=== PATIENT | male | born 1950 | race Caucasian/White ===

== ENCOUNTER → 2016-08-20 | Outpatient (CLI) | payer MEDICARE ==
[2016-08-20 12:46] LABS: CH 26.6; CHCM 31.6; HDW 3.08; HGB 12.6 gm/dL (13.0-17.5); Hypochromasia Slight; MCHC 30.7 g/dL (31.0-37.0); MCV 84.8 fL (80.0-100.0); Mean Platelet Volume 6.8; RBC 4.84 m/uL (4.30-5.90); RDW 15.5 % (11.5-15.5)
[2016-08-20 12:54] LABS: ALT 37 U/L (21-72); AST 29 U/L (17-59); Alkaline Phosphatase 56 U/L (38-126); Anion Gap 12 mmol/L; Blood Urea Nitrogen 14 mg/dL (9-20); Calcium 8.3 mg/dL (8.4-10.2); Carbon Dioxide 26 mmol/L (22-30); Chloride 100 mmol/L (98-107); Glucose 94 mg/dL (74-99); Non-African American GFR(MDRD) >60 (>60 ml/min/1.73 sqM); Potassium 3.4 mmol/L (3.5-5.1); Sodium 138 mmol/L (137-145); Total Bilirubin 0.4 mg/dL (0.2-1.3); Total Protein 6.1 g/dL (6.3-8.2)
[2016-08-20 13:01] LABS: Prealbumin 15 mg/dL (18-36)
--- NOTE | 2016-08-20 18:49 | US ---
EXAMINATION TYPE: US venous doppler duplex LE LT DATE OF EXAM: 08/20/2016 9:02 AM COMPARISON: NONE CLINICAL HISTORY: leg swelling post surgery. SIDE PERFORMED: Left VESSELS IMAGED: External Iliac Vein (EIV) Common Femoral Vein Deep Femoral Vein Greater Saphenous Vein * Femoral Vein Popliteal Vein Proximal Calf Veins (* superficial vessels) Left Leg: Negative for DVT TECHNOLOGIST IMPRESSION: Left leg negative for DVT. IMPRESSION: 1. Negative left lower extremity for deep venous thrombosis.
== END | disposition home or self-care (01) ==
LOC: RADUSMAIN 08:23
PROVIDERS: ATTEND Surgery Plastic and Reconstructive Surgery
DX: R22.42 Localized swelling, mass and lump, left lower limb (principal)
CPT/HCPCS: 36415; 80053; 83970; 84134; 85027

== ENCOUNTER → 2016-08-20 | Outpatient (CLI) | payer MEDICARE, OTHER ==
[~2016-08-20] MED LIST: SODIUM CHLORIDE 0.9% 250 ML in EMPTY BAG 1 BAG IV PRN
[2016-08-20] MEDS: SODIUM CHLORIDE 0.9% 500 ML in EMPTY BAG 1 BAG IV PRN ×4 (13:35→15:17)
[2016-08-20 13:52] VITALS: BP 137/92; PULSE 68; RESP 16; TEMP 97.7
--- NOTE | 2016-08-20 19:30 | P.PN ---
Progress Note - Text Patient's family, notified of results of low potassium. His diuretic has been discontinued for hypokalemia. Potassium rich foods were described including tomato base and potato soup. I have recommended follow-up in 48 hours.
== END | disposition home or self-care (01) ==
LOC: PROCWHC3 12:33
PROVIDERS: ATTEND Surgery Plastic and Reconstructive Surgery
DX: E86.0 Dehydration (principal); E87.6 Hypokalemia
CPT/HCPCS: 36415; 80053; 83970; 84134; 85027; 96360; 96361

== ENCOUNTER → 2016-08-29 | Outpatient (CLI) | payer MEDICARE, OTHER ==
[2016-08-29 09:13] VITALS: BP 144/83; PULSE 62; RESP 16; TEMP 98.2; BMI 40.6
[2016-08-29 11:45] LABS: CH 26.2; CHCM 30.9; HCT 40.6 % (39.0-53.0); HDW 3.01; HGB 12.7 gm/dL (13.0-17.5); Hypochromasia Moderate; MCH 26.5 pg (25.0-35.0); MCHC 31.2 g/dL (31.0-37.0); Mean Platelet Volume 6.8; RBC 4.77 m/uL (4.30-5.90); RDW 15.6 % (11.5-15.5); WBC 6.1 k/uL (3.8-10.6)
[2016-08-29 11:53] LABS: INR 1.2 (<1.1); Partial Thromboplastin Time 23.7 sec (22.0-30.0); Prothrombin Time 11.8 sec (9.0-12.0)
[2016-08-29 12:05] LABS: ALT 46 U/L (21-72); AST 35 U/L (17-59); Alkaline Phosphatase 71 U/L (38-126); Anion Gap 11 mmol/L; Blood Urea Nitrogen 19 mg/dL (9-20); Calcium 9.2 mg/dL (8.4-10.2); Carbon Dioxide 25 mmol/L (22-30); Chloride 105 mmol/L (98-107); Cholesterol 138 mg/dL (<200); Glucose 97 mg/dL (74-99); HDL Cholesterol 27 mg/dL (40-60); Iron 43 ug/dL (49-181); Magnesium 2.1 mg/dL (1.6-2.3); Non-African American GFR(MDRD) >60 (>60 ml/min/1.73 sqM); Potassium 4.2 mmol/L (3.5-5.1); Sodium 141 mmol/L (137-145); Total Bilirubin 0.4 mg/dL (0.2-1.3); Total Protein 6.8 g/dL (6.3-8.2); Triglycerides 157 mg/dL (<150)
[2016-08-29 12:16] LABS: % Iron Saturation 18.1 % (20-50); Prealbumin 21 mg/dL (18-36); Total Iron Binding Capacity 237 ug/dL (261-462)
[2016-08-29 13:13] LABS: Vitamin B12 449 pg/mL
[2016-09-03 15:26] LABS: Selenium 157 mcg/L (63-160)
--- NOTE | 2016-09-15 17:23 | P.PN ---
Progress Note - Text DATE OF SERVICE: 08/29/2016. CHIEF COMPLAINT: Follow-up gastric bypass. HISTORY OF PRESENT ILLNESS: Frederic Lane is a 65-year-old gentleman who is status post Alex-en-Y gastric bypass on 08/05/2016. He is now 3 weeks out. He says "I feel great." His highest weight for his 6 feet 1 inch frame is approximately 347 pounds. Today he comes in weighing 307 pounds. He has already lost 40 pounds in approximately one month. In fact, in the last 3 weeks he has lost 38 pounds. Percent excess weight loss is now up to 25%. Body mass index is now reduced from 45.9 down to 40.6. He is able to tolerate all foods. He denies any dysphagia. No reports of nausea and vomiting. He is off all pain medications. He has completed his course of antibiotics. He has also discontinued his metformin as his blood sugars are normal. His blood pressure medication has also been adjusted as to avoid renal insufficiency. He is about to follow up with the urologist. Now he presents for further evaluation and management. PHYSICAL EXAM: VITAL SIGNS: 98.2, 62, 16, 144/83 6, 1, 307 pounds. Body mass index 40.6. GENERAL: Well-developed male in no acute distress. ABDOMEN: Soft, nontender, nondistended. All incisions granulated. No signs of infection or incisional hernias. He has a known umbilical hernia. MUSCULOSKELETAL: No clubbing, cyanosis, or edema. LABS: Hemoglobin improved from 11 to 12.7. Hyperchromasia is moderate. INR is 1.2 normal. Iron is low at 43. Total iron-binding capacity low at 237. Percent iron saturation was low at 18.1. Triglycerides were elevated at 157. Liver enzymes are within normal limits. HDL is low at 27. The rest of vitamins are within normal limits. ASSESSMENT: 1. Status post Alex-en-Y gastric bypass. 2. Hypertension. 3. Iron deficiency anemia. 4. Hypertriglyceridemia. 5. Morbid obesity. 6. Body mass index reduced from 45.9 down to 40.6. 7. Dietary surveillance and counseling. PLAN: 1. Clinically he is doing extremely well given his odessa course 3 weeks following his procedure. 2. I have gone over his medical reconciliation whereby he will continue with his blood pressure medication with the exception of his ROSEMARY inhibitor. 3. He has iron deficiency anemia for which iron infusions may be of benefit. 4. Recommend continued protein intake of at least 90 grams daily given his height and weight. 5. Recommend follow-up in 2 weeks at [place] office. 6. I have asked him to follow up sooner or contact the office should he have any further concerns.
== END | disposition home or self-care (01) ==
LOC: BARWHC3 08:56
PROVIDERS: ATTEND Surgery Plastic and Reconstructive Surgery
DX: Z48.815 Encounter for surgical aftercare following surgery on the digestive system (principal); Z98.84 Bariatric surgery status; I10 Essential (primary) hypertension; D50.9 Iron deficiency anemia, unspecified; E78.1 Pure hyperglyceridemia; E66.01 Morbid (severe) obesity due to excess calories; Z68.41 Body mass index [BMI] 40.0-44.9, adult; E21.1 Secondary hyperparathyroidism, not elsewhere classified; E89.1 Postprocedural hypoinsulinemia; D50.8 Other iron deficiency anemias; E44.0 Moderate protein-calorie malnutrition; E55.9 Vitamin D deficiency, unspecified; K74.1 Hepatic sclerosis; N19 Unspecified kidney failure; K50.90 Crohn's disease, unspecified, without complications
CPT/HCPCS: 84255; 84134; 84425; 80061; 80053; 82607; 82728; 83036; 82525; 82746; 83540; 83550; 83735; 84100; 84443; 84590; 84630; 85027; 85610; 85730; 82306; 83970; G0463; 99211

== ENCOUNTER → 2016-09-25 | Outpatient (CLI) | payer MEDICARE, OTHER ==
[2016-09-25 16:21] VITALS: BP 158/93; PULSE 60; RESP 18; TEMP 98.8; BMI 38.3
--- NOTE | 2016-09-29 18:08 | P.PN ---
Progress Note - Text DATE OF SERVICE: 09/25/2016 CHIEF COMPLAINT: Follow up gastric bypass. HISTORY OF PRESENT ILLNESS: Frederic Lane is a 65-year-old gentleman who is status post gastric bypass on 08/05/2016. He is approximately 6 to 9 weeks out from his procedure. His highest weight for his 6-foot 1-inch frame is 347 pounds. His ideal body weight is 188 pounds. Today he comes in weighing 290 pounds. In less than 2 months, he has already lost 57 pounds. Percent excess weight loss is 36%. Body mass index is reduced from 45.9 down to 38.4. Incidentally, he is not taking medications and he is medically noncompliant with his treatment. Despite having numerous conversations in followup, he still does not take adequate protein intake or protein shakes. He has already started to eat peanuts, which is not part of his dietary regimen. "I'm sick and tired of drinking protein shakes." His family has tried to find additional alternatives for protein shakes; however, he is already eagerly eating deli meats. Again, he is already eating peanuts. His sleep apnea is now resolved. No reports of hypertension. No reports of diarrhea, constipation or dumping syndrome as well. PHYSICAL EXAM: VITAL SIGNS: 98.8, 60, 18, 150/93, 6 feet 1 inch, 298 pounds, body mass index 38.4. GENERAL: Well-developed male in no acute distress. HEENT: No scleral icterus. Extraocular movements grossly intact. Moist buccal mucosa. NECK: Supple without lymphadenopathy. CHEST: Nonlabored respirations with equal bilateral excursions. CARDIOVASCULAR: Regular rate, regular rhythm. ABDOMEN: Protuberant, soft, nontender, nondistended. Wounds completely granulated. MUSCULOSKELETAL: No clubbing, cyanosis, or edema. NEURO: No focal or lateralizing signs. PSYCH: Appropriate affect. Alert and oriented to person, place, and time. LABS: Previous labs reviewed with hemoglobin low at 12.7. Moderate hyperchromasia and iron deficiency anemia was identified. Iron was low at 43. Total iron-binding capacity was low at 237. Percent iron saturation was low at 18.1. Triglycerides were elevated at 157. Cholesterol was low at 138. HDL was low at 27. Vitamin D was low at 11. Trace elements were within normal limits. ASSESSMENT: 1. Status post Alex-en-Y gastric bypass. 2. Morbid obesity due to excess calories. 3. Body mass index reduced from 45.9 down to 38.4. 4. Medical noncompliance to dietary regimen following bariatric procedure. 5. History of hypertensive heart disease, stable. 6. Obstructive sleep apnea, resolved. 7. Diabetes type 2, not insulin-dependent, resolved. 8. Vitamin D deficiency. 9. Iron-deficiency anemia. PLAN: 1. He was educated about the need for protein intake, which will also help with his weight loss. 2. He is saddened that his weight loss has slowed down; however, I have encouraged him that he is doing exceptionally well; however, he needs to adhere to the dietary guidelines. 3. He denies any dysphagia with foods at this time. 4. Vitamin D supplementation advised. 5. Iron supplement advised. 6. Start of multivitamins although advised, although he is forgetting to take his multivitamins. 7. Given his high risk nature, recommend followup at the [place] office in approximately 3 weeks.
== END | disposition home or self-care (01) ==
LOC: BARWHC3 14:14
PROVIDERS: ATTEND Surgery Plastic and Reconstructive Surgery
DX: Z48.815 Encounter for surgical aftercare following surgery on the digestive system (principal); Z71.3 Dietary counseling and surveillance; E66.01 Morbid (severe) obesity due to excess calories; Z68.38 Body mass index [BMI] 38.0-38.9, adult; Z98.84 Bariatric surgery status; Z91.11 Patient's noncompliance with dietary regimen; I11.9 Hypertensive heart disease without heart failure; E55.9 Vitamin D deficiency, unspecified; D50.9 Iron deficiency anemia, unspecified
CPT/HCPCS: 97803; G0463; 99211

== ENCOUNTER → 2017-09-15 | Outpatient (CLI) | payer MEDICARE ==
[2017-09-15 16:26] LABS: HCT 42.3 % (39.0-53.0); HGB 13.7 gm/dL (13.0-17.5); MCH 29.3 pg (25.0-35.0); MCHC 32.4 g/dL (31.0-37.0); MCV 90.3 fL (80.0-100.0); Mean Platelet Volume 6.7; Platelet Count 202 k/uL (150-450); RBC 4.68 m/uL (4.30-5.90); RDW 14.8 % (11.5-15.5); WBC 7.1 k/uL (3.8-10.6)
[2017-09-15 16:31] LABS: INR 1.1 (<1.2); Prothrombin Time 10.6 sec (9.0-12.0)
[2017-09-15 16:54] LABS: ALT 38 U/L (21-72); AST 26 U/L (17-59); Albumin 4.1 g/dL (3.5-5.0); Alkaline Phosphatase 88 U/L (38-126); Anion Gap 13 mmol/L; Blood Urea Nitrogen 26 mg/dL (9-20); Calcium 9.1 mg/dL (8.4-10.2); Carbon Dioxide 28 mmol/L (22-30); Chloride 102 mmol/L (98-107); Cholesterol 125 mg/dL (<200); Glucose 91 mg/dL (74-99); HDL Cholesterol 26 mg/dL (40-60); LDL Cholesterol,Calculated 84 mg/dL (0-99); Magnesium 2.3 mg/dL (1.6-2.3); Phosphorus 3.8 mg/dL (2.5-4.5); Potassium 3.6 mmol/L (3.5-5.1); Sodium 143 mmol/L (137-145); Total Bilirubin 0.3 mg/dL (0.2-1.3); Total Protein 6.8 g/dL (6.3-8.2); Triglycerides 75 mg/dL (<150)
[2017-09-16 01:03] LABS: Iron Saturation 16.25 (15.00-50.00)
[2017-09-16 01:13] LABS: Vitamin D 25 Hydroxy 53.1 ng/mL (30.0-100.0)
[2017-09-16 01:34] LABS: Folate, Serum 13.4 ng/mL
[2017-09-16 03:39] LABS: Hemoglobin A1C 5.2 % (4.0-6.0)
[2017-09-16 05:11] LABS: Parathyroid Hormone Intact 55.8 pg/mL (14.0-72.0)
[2017-09-16 15:04] LABS: Vitamin A 39 ug/dL (38-106)
[2017-09-16 15:26] LABS: Zinc, Serum 71 ug/dL (60-130)
[2017-09-17 03:26] LABS: Vitamin B1 43 ug/L (38-122)
[2017-09-18 11:59] LABS: Selenium 139 mcg/L (63-160)
== END | disposition home or self-care (01) ==
LOC: LABWHC1 15:29
PROVIDERS: ATTEND Surgery Plastic and Reconstructive Surgery
DX: E89.1 Postprocedural hypoinsulinemia (principal); D50.8 Other iron deficiency anemias; E55.9 Vitamin D deficiency, unspecified; E44.0 Moderate protein-calorie malnutrition; K74.1 Hepatic sclerosis; T56.894A Toxic effect of other metals, undetermined, initial encounter
CPT/HCPCS: 36415; 80053; 80061; 82306; 82525; 82607; 82728; 82746; 83036; 83540; 83550; 83735; 83970; 84100; 84134; 84255; 84425; 84443; 84590; 84630; 85027; 85610; 85730

== ENCOUNTER 2017-09-25 11:03 | Day surgery (SDC) | payer MEDICARE, OTHER ==
[2017-09-23 09:56] VITALS: BMI 32.1
--- NOTE | 2017-09-25 07:50 | P.GSHP ---
History of Present Illness H&P Date: 09/25/17 CHIEF COMPLAINT: GERD HISTORY OF PRESENT ILLNESS: The patient is a 66-year-old male who presents reports gastroesophageal reflux disease. Upper endoscopy was offered for further evaluation and management. PAST MEDICAL HISTORY: Please see list. PAST SURGICAL HISTORY: Please see list. MEDICATIONS: Please see list. ALLERGIES: Please see list. SOCIAL HISTORY: No illicit drug use FAMILY HISTORY: No reports of Crohn disease or ulcerative colitis. REVIEW OF ORGAN SYSTEMS: CONSTITUTIONAL: No reports of fevers or chills. GI: Denies any blood in stools or constipation. PHYSICAL EXAM: VITAL SIGNS: Stable GENERAL: Well-developed and pleasant in no acute distress. HEENT: No scleral icterus. Extraocular movements grossly intact. Moist buccal mucosa. NECK: Supple without lymphadenopathy. CHEST: Unlabored respirations. Equal bilateral excursions. CARDIOVASCULAR: Regular rate and rhythm. Distal 2+ pulses. ABDOMEN: Soft, nondistended. MUSCULOSKELETAL: No clubbing, cyanosis, or edema. ASSESSMENT: 1. Gastroesophageal reflux disease PLAN: 1. Recommend proceeding with an upper endoscopy Past Medical History Past Medical History: Diabetes Mellitus, Hypertension, Prostate Disorder, Sleep Apnea/CPAP/BIPAP Additional Past Medical History / Comment(s): no cpap used since wt loss, feels like food getting stuck, no meds for diabetes since wt loss, History of Any Multi-Drug Resistant Organisms: MRSA Date of last positivie culture/infection: 08/12/16 MDRO Source:: Peritoneal Fluid Past Surgical History: Appendectomy, Bariatric Surgery Additional Past Surgical History / Comment(s): gastric bypass Past Anesthesia/Blood Transfusion Reactions: Motion Sickness Smoking Status: Never smoker - Past Family History Father History Unknown: Yes Additional Family Medical History / Comment(s): does not know father. Mother Family Medical History: No Reported History Additional Family Medical History / Comment(s): . Medications and Allergies Home Medications Medication Instructions Recorded Confirmed Type Finasteride [Proscar] 5 mg PO DAILY 06/06/16 09/23/17 History Tamsulosin HCl [Flomax] 0.8 mg PO DAILY 06/06/16 09/23/17 History Ergocalciferol [Vitamin D2 50,000 unit PO WE 09/23/17 09/23/17 History (DRISDOL)] Multivitamin [Multivitamins Adult 2 each PO DAILY 09/23/17 09/23/17 History Gummies] amLODIPine [Norvasc] 10 mg PO DAILY 09/23/17 09/23/17 History Allergies Allergy/AdvReac Type Severity Reaction Status Date / Time No Known Allergies Allergy Verified 09/23/17 09:39
[2017-09-25 11:27] VITALS: RESP 16; TEMP 98.3
[2017-09-25] MEDS: LACTATED RINGERS 1,000 ML IV SCH ×2 (11:33→12:12)
[2017-09-25] MEDS ORDERED: LIDOCAINE 1% 20 ML VIAL (10MG/ML) FOR IV START INTRADERMA ONE (11:33)
[2017-09-25] MEDS ORDERED: PROPOFOL 10 MG/ML 20 ML VIAL IV ONE (12:15)
--- NOTE | 2017-09-25 12:31 | P.PCN ---
Date of Procedure: 09/25/17 Description of Procedure: PREOPERATIVE DIAGNOSIS: Dysphagia. POSTOPERATIVE DIAGNOSIS: Dysphagia. Gastrojejunal stricture. OPERATION: Esophagogastrojejunoscopy with balloon dilation, 20 mm. SURGEON: Yessica Villafana MD ANESTHESIA: MAC. INDICATIONS: The patient is a 66-year-old male who presents with a history of dysphagia. Benefits and risks of the procedure were described. Informed consent was obtained. DESCRIPTION: The patient was brought into the endoscopy suite and laid in the left lateral decubitus position. After a timeout was confirmed, the procedure was initiated. An Olympus gastroscope 9.5 mm diameter was gently passed to the distal esophagus and onto her esophagojejunostomy. The scope was advanced to 70 cm from the incisors. A [employer] 20 mm balloon was passed and insufflated for 2 minutes. A stricture of 15 mm was dilated. No full-thickness injury was encountered. The GI tract was desufflated. The patient tolerated the procedure well. FINDINGS: Stricture of 15 mm at the anastomosis. RECOMMENDATIONS: Upper endoscopy as needed. Plan - Discharge Summary New Discharge Prescriptions: No Action Finasteride [Proscar] 5 mg PO DAILY Tamsulosin HCl [Flomax] 0.8 mg PO DAILY amLODIPine [Norvasc] 10 mg PO DAILY Ergocalciferol [Vitamin D2 (DRISDOL)] 50,000 unit PO WE Multivitamin [Multivitamins Adult Gummies] 2 each PO DAILY Discharge Medication List Finasteride [Proscar] 5 mg PO DAILY 06/06/16 [History] Tamsulosin HCl [Flomax] 0.8 mg PO DAILY 06/06/16 [History] Ergocalciferol [Vitamin D2 (DRISDOL)] 50,000 unit PO WE 09/23/17 [History] Multivitamin [Multivitamins Adult Gummies] 2 each PO DAILY 09/23/17 [History] amLODIPine [Norvasc] 10 mg PO DAILY 09/23/17 [History] Follow up Appointment(s)/Referral(s): Yessica Villafana MD [STAFF PHYSICIAN] - 10/14/17 ([place]) Patient Instructions/Handouts: Esophageal Dilation (DC) Activity/Diet/Wound Care/Special Instructions: Liquids today. Regular diet tomorrow. Discharge Disposition: HOME SELF-CARE
[2017-09-25 12:55] VITALS: BP 159/89; PULSE 63
== END 2017-09-25 13:16 | disposition home or self-care (01) ==
LOC: ORWHC2ENDO 11:03
PROVIDERS: ATTEND Surgery Plastic and Reconstructive Surgery
DX: K29.50 Unspecified chronic gastritis without bleeding (principal); K31.89 Other diseases of stomach and duodenum; K21.9 Gastro-esophageal reflux disease without esophagitis; Z98.84 Bariatric surgery status; E11.9 Type 2 diabetes mellitus without complications; I10 Essential (primary) hypertension; N42.9 Disorder of prostate, unspecified; G47.33 Obstructive sleep apnea (adult) (pediatric); Z99.89 Dependence on other enabling machines and devices; Z86.14 Personal history of Methicillin resistant Staphylococcus aureus infection; Z79.899 Other long term (current) drug therapy
CPT/HCPCS: 88305; 43239; 43249; J2704; C1726

== ENCOUNTER → 2017-10-29 | Outpatient (CLI) | payer MEDICARE ==
[2017-10-29 15:55] VITALS: BP 167/90; PULSE 68; RESP 16; TEMP 98.3; BMI 32.3
--- NOTE | 2017-12-12 12:09 | P.PN ---
Subjective Progress Note Date: 10/29/17 DATE OF SERVICE: 10/29/2017 CHIEF COMPLAINT: Follow up gastric bypass. HISTORY OF PRESENT ILLNESS: Frederic Lane is a 65-year-old gentleman who is status post gastric bypass on 08/05/2016. He is more than 1 year out. His highest weight for his 6-foot 1-inch frame is 347 pounds. His ideal body weight is 188 pounds. Today he comes in weighing 244 pounds. In one year he has lost 45 pounds since his last visit. Percent excess weight loss is 64%. Body mass index is reduced from 45.9 down to 32.3. Reports his weight was 233 pounds. He is gained 11 pounds in 4 months. His prior epigastric abdominal pain including dysphagia to textured foods is now resolved after upper endoscopy. He reports eating mostly protein daily. PAST MEDICAL HISTORY: 1. Morbid obesity. 2. Hypertensive heart disease. 3. Zpv-lujddmu-xfrklhzrz diabetes type 2, resolved. 4. Hypercholesterolemia. 5. Obstructive sleep apnea, resolved 6. Gastroesophageal reflux disease, resolved 7. Benign prostatic hyperplasia. 8. Vertigo. PAST SURGICAL HISTORY: 1. Upper endoscopy. 2. Appendectomy, open 3. Colonoscopy. 4. Alex-en-Y gastric bypass 08/05/2016. 5. Laparoscopic repair of incarcerated paraesophageal hiatal hernia. MEDICATIONS: 1. Norvasc. 2. Flomax 3. Proscar. 4. Multivitamin 5. Vitamin D ALLERGIES: Denies. SOCIAL HISTORY: No active tobacco use. He is . FAMILY HISTORY: Significant for moderate severe morbid obesity including his children. His daughter's body mass index is well over 70. REVIEW OF SYSTEMS: CONSTITUTIONAL: His highest weight for his 6-foot 1-inch frame is 347 pounds. His ideal body weight is 188 pounds. Today he comes in weighing 244 pounds. In one year he has lost 45 pounds since his last visit. Percent excess weight loss is 64%. Body mass index is reduced from 45.9 down to 32.3. Reports his weight was 233 pounds. He is gained 11 pounds in 4 months. HEENT: No troubles with hearing. Wears glasses. . ENDOCRINE: History of diabetes type 2, resolved. No reports of thyroid disorder. CARDIOVASCULAR: History of hypertension, improved with decrease of blood pressure medications. RESPIRATORY: Has moderate to severe obstructive sleep apnea, now resolved. GASTROINTESTINAL: Has gastroesophageal reflux disease, now resolved. No dumping syndrome. MUSCULOSKELETAL: History of osteoarthritis of the bilateral knees, improved. NEURO: No reports of stroke or seizure disorder. PSYCH: No reports of depression or suicidal ideation. HEMATOLOGIC: Denies any easy bruising or bleeding. GENITOURINARY: Has pre-existing obstructive uropathy. SKIN: No rash. No cancer. PHYSICAL EXAM: VITAL SIGNS: 6 feet 1 inch, 244 pounds, body mass index 32.3 Vital Signs Temp 98.3 F 10/29/17 15:49 Pulse 68 10/29/17 15:49 Resp 16 10/29/17 15:49 BP 167/90 10/29/17 15:49 Pulse Ox GENERAL: Well-developed male in no acute distress. HEENT: No scleral icterus. Extraocular movements grossly intact. Moist buccal mucosa. NECK: Supple without lymphadenopathy. CHEST: Nonlabored respirations with equal bilateral excursions. CARDIOVASCULAR: Regular rate, regular rhythm. 2+ radial pulses. ABDOMEN: Protuberant, soft, nontender, nondistended. Reducible umbilical hernia. No hernias at bariatric sites. MUSCULOSKELETAL: No clubbing, cyanosis, or edema. NEURO: No focal or lateralizing signs. Cranial nerves II-12 grossly within normal limits. PSYCH: Appropriate affect. Alert and oriented to person, place, and time. SKIN: Well perfused. Good skin turgor. LABS: Labs reviewed. Iron is low. Ferritin normal. HDL is low. ASSESSMENT: 1. Status post Alex-en-Y gastric bypass. 2. Morbid obesity due to excess calories. 3. Body mass index reduced from 45.9 down to 32.3 4. History of hypertensive heart disease, improved 5. Obstructive sleep apnea, resolved. 6. Diabetes type 2, non insulin-dependent, resolved. 7. Iron-deficiency anemia. 8. Dyslipidemia 9. 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 Umbilical hernia PLAN: 1. His symptoms of dysphagia to solid foods is now resolved after upper endoscopy with balloon dilatation. 2. Labs were reviewed with him in detail consistent with persistent iron deficiency however is for urgent is elevated. Findings consistent with inadequate utilization of iron. Recommend vitamin C for iron absorption. 3. He has maintained over 100+ pound weight loss over exam he has umbilical hernia may benefit from umbilical hernia repair. 4. DVT prophylaxis 5. Antibiotic prophylaxis Objective - Vital Signs Vital signs: Vital Signs Temp 98.3 F 10/29/17 15:49 Pulse 68 10/29/17 15:49 Resp 16 10/29/17 15:49 BP 167/90 10/29/17 15:49 Pulse Ox Intake & Output 10/28/17 10/29/17 10/29/17 18:59 06:59 18:59 Weight 111.13 kg
== END | disposition home or self-care (01) ==
LOC: BARWHC3 15:45
PROVIDERS: ATTEND Surgery Plastic and Reconstructive Surgery
DX: Z09 Encounter for follow-up examination after completed treatment for conditions other than malignant neoplasm (principal); E66.01 Morbid (severe) obesity due to excess calories; D50.9 Iron deficiency anemia, unspecified; E78.5 Hyperlipidemia, unspecified; R13.10 Dysphagia, unspecified; K42.9 Umbilical hernia without obstruction or gangrene; Z86.79 Personal history of other diseases of the circulatory system; Z98.84 Bariatric surgery status; K91.89 Other postprocedural complications and disorders of digestive system; Z79.899 Other long term (current) drug therapy; Z68.32 Body mass index [BMI] 32.0-32.9, adult
CPT/HCPCS: 99211

== ENCOUNTER → 2018-04-06 | Outpatient (CLI) | payer MEDICARE, OTHER ==
[2018-04-06 11:24] LABS: HCT 44.9 % (39.0-53.0); HGB 15.6 gm/dL (13.0-17.5); MCH 30.1 pg (25.0-35.0); MCHC 34.8 g/dL (31.0-37.0); MCV 86.7 fL (80.0-100.0); Mean Platelet Volume 6.2; Platelet Count 208 k/uL (150-450); RBC 5.17 m/uL (4.30-5.90); RDW 14.4 % (11.5-15.5); WBC 6.2 k/uL (3.8-10.6)
[2018-04-06 11:28] VITALS: BMI 35.2
[2018-04-06 11:36] LABS: ALT 33 U/L (21-72); AST 25 U/L (17-59); Albumin 4.2 g/dL (3.5-5.0); Alkaline Phosphatase 79 U/L (38-126); Anion Gap 6 mmol/L; Blood Urea Nitrogen 19 mg/dL (9-20); Calcium 9.4 mg/dL (8.4-10.2); Carbon Dioxide 33 mmol/L (22-30); Chloride 103 mmol/L (98-107); Cholesterol 136 mg/dL (<200); Glucose 91 mg/dL (74-99); HDL Cholesterol 29 mg/dL (40-60); LDL Cholesterol,Calculated 85 mg/dL (0-99); Magnesium 2.3 mg/dL (1.6-2.3); Phosphorus 4.1 mg/dL (2.5-4.5); Potassium 4.4 mmol/L (3.5-5.1); Sodium 142 mmol/L (137-145); Total Bilirubin 0.4 mg/dL (0.2-1.3); Total Protein 7.2 g/dL (6.3-8.2); Triglycerides 110 mg/dL (<150)
[2018-04-06 11:39] LABS: INR 1.2 (<1.2); Partial Thromboplastin Time 24.8 sec (22.0-30.0); Prothrombin Time 11.2 sec (9.0-12.0)
[2018-04-06 13:38] VITALS: BP 162/96; PULSE 61; RESP 16; TEMP 98.1
[2018-04-06 15:42] LABS: Parathyroid Hormone Intact 42.1 pg/mL (14.0-72.0)
[2018-04-06 16:25] LABS: Iron Saturation 20.14 (15.00-50.00)
[2018-04-06 16:35] LABS: Folate, Serum 18.2 ng/mL; Vitamin D 25 Hydroxy 26.2 ng/mL (30.0-100.0)
--- NOTE | 2018-04-06 17:53 | P.PN ---
Subjective Progress Note Date: 04/06/18 The patient is status post gastric bypass over 2 years ago. Reports moderate weight regain over 36 pounds along the past 3-4 months. He reports having difficulty with eating. Separately he also reports troubles with dysphasia and acid reflux. He has history of stricture. Separately has a symptomatic umbilical hernia. He has not had a structured dietary follow-up as well. ABDOMEN: Reducible umbilical hernia 3 cm unrelated to previous bariatric procedure PLAN: 1. Recommend upper endoscopy with balloon to balloon dilation for history of dysphagia and stricture 2. Recommend bariatric metabolic panel for moderate weight gain and metabolic profile 3. Recommend immediate referral to bariatric dietitian regarding bariatric postop guidelines 4. Will need umbilical hernia repair in the future. Objective - Vital Signs Vital signs: Vital Signs Temp 98.1 F 04/06/18 13:35 Pulse 61 04/06/18 13:35 Resp 16 04/06/18 13:35 BP 162/96 04/06/18 13:35 Pulse Ox Intake & Output 04/05/18 04/06/18 04/06/18 18:59 06:59 18:59 Weight 121.109 kg - Labs CBC & Chem 7: 04/06/18 11:05 04/06/18 11:05 Labs: Abnormal Lab Results - Last 24 Hours (Table) 04/06/18 04/06/18 04/06/18 Range/Units 11:05 11:05 11:05 INR 1.2 H (<1.2) Carbon Dioxide 33 H (22-30) mmol/L Iron 58 L (65-175) ug/dL HDL Cholesterol 29 L (40-60) mg/dL Vitamin D 25-Hydroxy 26.2 L (30.0-100.0) ng/mL
[2018-04-06 18:40] LABS: Hemoglobin A1C 5.4 % (4.0-6.0)
[2018-04-07 15:35] LABS: Vitamin B1 43 ug/L (38-122)
[2018-04-08 07:24] LABS: Vitamin A 40 ug/dL (38-106)
[2018-04-08 14:53] LABS: Zinc, Serum 64 ug/dL (60-130)
[2018-04-09 11:47] LABS: Selenium 139 mcg/L (63-160)
== END | disposition home or self-care (01) ==
LOC: BARWHC3 10:29
PROVIDERS: ATTEND Surgery Plastic and Reconstructive Surgery
DX: Z09 Encounter for follow-up examination after completed treatment for conditions other than malignant neoplasm (principal); R13.10 Dysphagia, unspecified; K21.9 Gastro-esophageal reflux disease without esophagitis; E66.01 Morbid (severe) obesity due to excess calories; E21.1 Secondary hyperparathyroidism, not elsewhere classified; E89.1 Postprocedural hypoinsulinemia; D50.9 Iron deficiency anemia, unspecified; K90.9 Intestinal malabsorption, unspecified; E55.9 Vitamin D deficiency, unspecified; K74.1 Hepatic sclerosis; N19 Unspecified kidney failure; K50.90 Crohn's disease, unspecified, without complications; K42.9 Umbilical hernia without obstruction or gangrene; Z98.84 Bariatric surgery status; Z68.35 Body mass index [BMI] 35.0-35.9, adult
CPT/HCPCS: 84255; 84134; 84425; 80061; 80053; 82607; 82728; 82525; 82746; 83540; 83550; 83735; 84100; 84443; 84590; 84630; 85027; 85610; 85730; 82306; 83970; 83036; 97803; 36415; G0463; 99211

== ENCOUNTER 2018-06-15 11:12 | Day surgery (SDC) | payer MEDICARE ==
[2018-06-12 10:06] VITALS: BMI 35.9
--- NOTE | 2018-06-15 06:36 | P.GSHP ---
History of Present Illness H&P Date: 06/15/18 CHIEF COMPLAINT: GERD HISTORY OF PRESENT ILLNESS: The patient is a 67-year-old male who presents reports gastroesophageal reflux disease. Upper endoscopy was offered for further evaluation and management. PAST MEDICAL HISTORY: Please see list. PAST SURGICAL HISTORY: Please see list. MEDICATIONS: Please see list. ALLERGIES: Please see list. SOCIAL HISTORY: No illicit drug use FAMILY HISTORY: No reports of Crohn disease or ulcerative colitis. REVIEW OF ORGAN SYSTEMS: CONSTITUTIONAL: No reports of fevers or chills. GI: Denies any blood in stools or constipation. PHYSICAL EXAM: VITAL SIGNS: Stable GENERAL: Well-developed and pleasant in no acute distress. HEENT: No scleral icterus. Extraocular movements grossly intact. Moist buccal mucosa. NECK: Supple without lymphadenopathy. CHEST: Unlabored respirations. Equal bilateral excursions. CARDIOVASCULAR: Regular rate and rhythm. Distal 2+ pulses. ABDOMEN: Soft, nondistended. MUSCULOSKELETAL: No clubbing, cyanosis, or edema. ASSESSMENT: 1. Gastroesophageal reflux disease PLAN: 1. Recommend proceeding with an upper endoscopy Past Medical History Past Medical History: Hyperlipidemia, Hypertension, Prostate Disorder, Sleep Apnea/CPAP/BIPAP Additional Past Medical History / Comment(s): obstructive uropathy with BPH History of Any Multi-Drug Resistant Organisms: MRSA Date of last positivie culture/infection: 08/12/16 MDRO Source:: Peritoneal Fluid Past Surgical History: Appendectomy, Bariatric Surgery Additional Past Surgical History / Comment(s): EGD,colonoscopy gastric bypass 08-05-16 Past Anesthesia/Blood Transfusion Reactions: Motion Sickness Smoking Status: Never smoker - Past Family History Father History Unknown: Yes Additional Family Medical History / Comment(s): does not know father. Mother Family Medical History: No Reported History Additional Family Medical History / Comment(s): . Medications and Allergies Home Medications Medication Instructions Recorded Confirmed Type RX: Finasteride [Proscar] 5 mg PO HS 06/06/16 06/12/18 History RX: Tamsulosin HCl [Flomax] 0.8 mg PO HS 06/06/16 06/12/18 History Ergocalciferol [Vitamin D2 50,000 unit PO WE 09/23/17 06/12/18 History (DRISDOL)] Multivitamin [Multivitamins Adult 2 each PO DAILY 09/23/17 06/12/18 History Gummies] amLODIPine [Norvasc] 10 mg PO HS 09/23/17 06/12/18 History Allergies Allergy/AdvReac Type Severity Reaction Status Date / Time No Known Allergies Allergy Verified 06/12/18 10:02
[~2018-06-15 11:12] MED LIST changes: +LACTATED RINGERS 1,000 ML IV SCH; -SODIUM CHLORIDE 0.9% 250 ML in EMPTY BAG 1 BAG IV PRN
[2018-06-15 11:31] VITALS: TEMP 97.5
[2018-06-15] MEDS ORDERED: LIDOCAINE 1% 20 ML VIAL (10MG/ML) FOR IV START INTRADERMA ONE (11:36)
[2018-06-15] MEDS ORDERED: LIDOCAINE 1% INJ 10MG/ML (20 ML MDV) ONE (11:37)
[2018-06-15] MEDS ORDERED: PROPOFOL 10 MG/ML 20 ML VIAL IV ONE (11:37)
--- NOTE | 2018-06-15 11:53 | P.PCN ---
Date of Procedure: 06/15/18 Description of Procedure: PREOPERATIVE DIAGNOSIS: Dysphagia. History of gastrojejunal stricture Nausea with vomiting. Morbid obesity. Gastroesophageal reflux disease POSTOPERATIVE DIAGNOSIS: Dysphagia. History of gastrojejunal stricture Nausea with vomiting. Morbid obesity. Gastroesophageal reflux disease Gastrojejunal stricture without ulcer without perforation Foreign body at gastrojejunal anastomosis OPERATION: Esophagogastrojejunoscopy with balloon dilatation from 15 to 20 mm. Esophagogastrojejunoscopy with removal of foreign body SURGEON: Yessica Villafana MD ANESTHESIA: MAC. INDICATIONS: The patient is a 67-year-old male who presents with a history of dysphagia, including new-onset nausea and vomiting. Benefits and risks of the procedure were described. Informed consent was obtained. DESCRIPTION: The patient was brought into the endoscopy suite and laid in the left lateral decubitus position. After a timeout was confirmed, the procedure was initiated. An Olympus gastroscope was passed along the posterior oropharynx down to the distal esophagus where the squamocolumnar junction was unremarkable. The gastric pouch was entered. A gastrojejunal stricture of 15 mm was found as the adult gastroscope was 9.5 mm in size. A [employer] balloon dilator was placed through the scope. Final insufflation up to 20 mm was performed with a total of 2 minutes. The scope was advanced up to 60 cm from the incisors into the Alex limb. The mucosa of the gastrojejunal anastomosis was intact. No chronic gastrojejunal marginal ulcer was encountered. No full-thickness injury was encountered. Retained staple at the gastrojejunal anastomosis was found and removed using cold biopsy forceps. The GI tract was desufflated. The patient tolerated the procedure well. FINDINGS: Squamocolumnar junction unremarkable at 40 cm. Stricture of approximately 15 mm encountered. No chronic gastrojejunal ulceration encountered. Successful balloon dilatation to 20 mm. Gastric pouch 10 cm. RECOMMENDATIONS: 1. Recommend antacid therapy 2. Upper endoscopy as needed Plan - Discharge Summary New Discharge Prescriptions: New Gentamicin 0.1% Cream 1 applic TOPICAL TID #60 gm Triamcinolone 0.1% Cream [Kenalog 0.1% Cream] 1 applicatio TOPICAL BID #60 tube Continue Ergocalciferol [Vitamin D2 (DRISDOL)] 50,000 unit PO WE #20 cap No Action Finasteride [Proscar] 5 mg PO HS Tamsulosin HCl [Flomax] 0.8 mg PO HS amLODIPine [Norvasc] 10 mg PO HS Multivitamin [Multivitamins Adult Gummies] 2 each PO DAILY Discharge Medication List Finasteride [Proscar] 5 mg PO HS 06/06/16 [History] Tamsulosin HCl [Flomax] 0.8 mg PO HS 06/06/16 [History] Multivitamin [Multivitamins Adult Gummies] 2 each PO DAILY 09/23/17 [History] amLODIPine [Norvasc] 10 mg PO HS 09/23/17 [History] Ergocalciferol [Vitamin D2 (DRISDOL)] 50,000 unit PO WE #20 cap 06/15/18 [Rx] Gentamicin 0.1% Cream 1 applic TOPICAL TID #60 gm 06/15/18 [Rx] Triamcinolone 0.1% Cream [Kenalog 0.1% Cream] 1 applicatio TOPICAL BID #60 tube 06/15/18 [Rx] Follow up Appointment(s)/Referral(s): [facility] [NON-STAFF] - As Needed Patient Instructions/Handouts: *[facility] - (Anesthesia) Endoscopy Discharge Instructions, Clear Liquid Diet (DC), Esophageal Dilation (DC) Activity/Diet/Wound Care/Special Instructions: Liquid diet Discharge Disposition: HOME SELF-CARE
[2018-06-15 12:04] VITALS: RESP 18
[2018-06-15 12:28] VITALS: BP 160/74; PULSE 61
== END 2018-06-15 12:56 | disposition home or self-care (01) ==
LOC: ORWHC2ENDO 11:12
PROVIDERS: ATTEND Surgery Plastic and Reconstructive Surgery
DX: K56.609 Unspecified intestinal obstruction, unspecified as to partial versus complete obstruction (principal); K21.9 Gastro-esophageal reflux disease without esophagitis; E66.01 Morbid (severe) obesity due to excess calories; I10 Essential (primary) hypertension; T18.3XXA Foreign body in small intestine, initial encounter; E78.5 Hyperlipidemia, unspecified; N40.1 Benign prostatic hyperplasia with lower urinary tract symptoms; N13.8 Other obstructive and reflux uropathy; Z79.899 Other long term (current) drug therapy; Z98.0 Intestinal bypass and anastomosis status; Z98.84 Bariatric surgery status; Z86.14 Personal history of Methicillin resistant Staphylococcus aureus infection; Z68.35 Body mass index [BMI] 35.0-35.9, adult; X58.XXXA Exposure to other specified factors, initial encounter
CPT/HCPCS: 43245; 43247; J2001; J2704; C1726

== ENCOUNTER 2018-10-27 12:33 | Emergency (ER) | payer MEDICARE ==
[2018-10-27 12:59] VITALS: RESP 18; TEMP 98.6
[2018-10-27] MEDS ORDERED: PANTOPRAZOLE 40 MG/10 ML VIAL IVP STA (14:20)
[2018-10-27] MEDS ORDERED: SODIUM CHLORIDE 0.9% 1,000 ML IV STA (14:20)
[2018-10-27] MEDS ORDERED: ONDANSETRON 4 MG/2 ML VIAL IVP STA (14:20)
[2018-10-27] MEDS ORDERED: MAG HYDROX/AL HYDROX/SIMETH 30 ML, HYOSCYAMINE ELIXIR 10 ML, CIMETIDINE HCL 300 MG, LID... PO STA ×4 (14:21)
[2018-10-27 15:01] LABS: Basophils # (A) 0.1 k/uL (0-0.2); Basophils % (A) 0 %; Eosinophils # (A) 0.2 k/uL (0-0.7); Eosinophils % (A) 2 %; HCT 41.9 % (39.0-53.0); HGB 13.6 gm/dL (13.0-17.5); Lymphocytes # (A) 0.8 k/uL (1.0-4.8); Lymphocytes % (A) 7 %; MCHC 32.5 g/dL (31.0-37.0); MCV 86.2 fL (80.0-100.0); Mean Platelet Volume 6.4; Monocytes # (A) 0.8 k/uL (0-1.0); Monocytes % (A) 7 %; Neutrophils # (A) 9.7 k/uL (1.3-7.7); Neutrophils % (A) 83 %; Platelet Count 200 k/uL (150-450); RBC 4.86 m/uL (4.30-5.90); RDW 14.8 % (11.5-15.5); WBC 11.6 k/uL (3.8-10.6)
--- NOTE | 2018-10-27 15:01 | XR ---
EXAMINATION TYPE: XR KUB DATE OF EXAM: 10/27/2018 COMPARISON: NONE HISTORY: Pain TECHNIQUE: One view abdominal series FINDINGS: Hypertrophic and degenerative change of the spine. Bibasilar infiltrate and small effusion. Chronic r ib deformities on the left. Air seen throughout both large and small bowel loops in a nonspecific pattern. Air is seen within the rectum and left colon with no diagnostic evidence of complete obstruction. Arthropathy of the hips. IMPRESSION: 1. Nonspecific abdomen with no diagnostic evidence of obstruction. 2. Bilateral lower lobe infiltrate and small effusion.
--- NOTE | 2018-10-27 15:03 | ED ---
Abdominal Pain HPI - General Chief Complaint: Abdominal Pain Stated Complaint: Acid reflex Time Seen by Provider: 10/27/18 14:02 Source: patient, RN notes reviewed, old records reviewed Mode of arrival: ambulatory Limitations: no limitations - History of Present Illness Initial Comments: 59-year-old male presents today with complaints of severe acid reflux like symptoms. Patient reports he woke up in the middle the night last night with vomiting. Patient states has history of gastric sleeve. His surgeon is Dr. Sepulveda. Patient states he's had these episodes of vomiting adamantly for the past few months. Patient states that he has had a diet with multiple ascitic and vinegary foods including pickles. Patient states that he was told to come to the ER by his bariatrics surgeon. Patient states that he also has a broken rib and is requesting refill of pain medication for his left broken rib. Patient denies any recent fever, chills, shortness of breath, chest pain, back pain, abdominal pain, nausea vomiting, numbness or tingling, dysuria or hematuria, constipation or diarrhea, headaches or visual changes, or any other current symptoms - Related Data Home Medications Medication Instructions Recorded Confirmed Finasteride [Proscar] 5 mg PO HS 06/06/16 10/27/18 Tamsulosin HCl [Flomax] 0.4 mg PO BID 06/06/16 10/27/18 Multivitamin [Multivitamins Adult 2 each PO DAILY 09/23/17 10/27/18 Gummies] amLODIPine [Norvasc] 10 mg PO HS 09/23/17 10/27/18 Ferrous Sulfate [Feosol] 325 mg PO DAILY 10/27/18 10/27/18 traMADol HCL [Ultram] 50 - 100 mg PO Q6HR PRN 10/27/18 10/27/18 Previous Rx's Medication Instructions Recorded Ergocalciferol [Vitamin D2 50,000 unit PO WE #20 cap 06/15/18 (REGINE)] Levofloxacin [Levaquin] 750 mg PO DAILY #5 tab 10/27/18 Omeprazole 40 mg PO DAILY #20 capsule. 10/27/18 traMADol HCL [Ultram] 50 mg PO Q6HR PRN 3 Days #12 tab 10/27/18 Allergies Allergy/AdvReac Type Severity Reaction Status Date / Time No Known Allergies Allergy Verified 10/27/18 14:13 Review of Systems ROS Statement: Those systems with pertinent positive or pertinent negative responses have been documented in the HPI. ROS Other: All systems not noted in ROS Statement are negative. 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 Mother Family Medical History: No Reported History Additional Family Medical History / Comment(s): . General Exam - General Exam Comments Initial Comments: 67-year-old male. Alert and oriented. No distress. Limitations: no limitations General appearance: alert, in no apparent distress Head exam: Present: atraumatic, normocephalic, normal inspection Eye exam: Present: normal appearance, PERRL, EOMI. Absent: scleral icterus, conjunctival injection, periorbital swelling ENT exam: Present: normal exam, mucous membranes moist Neck exam: Present: normal inspection. Absent: tenderness, meningismus, lymphadenopathy Respiratory exam: Present: normal lung sounds bilaterally. Absent: respiratory distress, wheezes, rales, rhonchi, stridor Cardiovascular Exam: Present: regular rate, normal rhythm, normal heart sounds. Absent: systolic murmur, diastolic murmur, rubs, gallop, clicks GI/Abdominal exam: Present: soft, normal bowel sounds. Absent: distended, tenderness, guarding, rebound, rigid Extremities exam: Present: normal inspection, full ROM, normal capillary refill. Absent: tenderness, pedal edema, joint swelling, calf tenderness Back exam: Present: normal inspection Neurological exam: Present: alert, oriented X3, CN II-XII intact Psychiatric exam: Present: normal affect, normal mood Skin exam: Present: warm, dry, intact, normal color. Absent: rash Course Vital Signs 10/27/18 12:57 Temperature 98.6 F Pulse Rate 72 Respiratory 18 Rate Blood Pressure 118/74 O2 Sat by Pulse 98 Oximetry Medical Decision Making - Medical Decision Making Patient is a 67-year-old male history of Collins her surgery presents emergency room today with complaints of acid reflux discomfort and retching episodes for the past few weeks. This time Patient has been given IV fluids labwork obtained. Labwork was reviewed and unremarkable. Urinalysis is positive for infection. Patient reports that he's had a history of urine leakage intermittently for the past few months. Patient reports that he's been wearing a incontinence pad. At this time Patient will be given a dose of IV Rocephin. We'll discharge the Patient with regimen for acid reflux, and antibiotics treat for UTI. I discussed the Patient. With his primary care physician. Patient a lso be given a short prescription for Ultram due to his recent rib fracture. KUB did make evidence of a bibasilar infiltrate and effusion. Discussed the importance of using his incentive spirometer and taking deep breaths. Patient will be placed on antibiotic for UTI and infiltrate. - Lab Data Result diagrams: 10/27/18 14:40 10/27/18 14:40 Lab Results 10/27/18 10/27/18 10/27/18 Range/Units 14:40 14:40 14:40 WBC 11.6 H (3.8-10.6) k/uL RBC 4.86 (4.30-5.90) m/uL Hgb 13.6 (13.0-17.5) gm/dL Hct 41.9 (39.0-53.0) % MCV 86.2 (80.0-100.0) fL MCH 28.0 (25.0-35.0) pg MCHC 32.5 (31.0-37.0) g/dL RDW 14.8 (11.5-15.5) % Plt Count 200 (150-450) k/uL Neutrophils % 83 % Lymphocytes % 7 % Monocytes % 7 % Eosinophils % 2 % Basophils % 0 % Neutrophils # 9.7 H (1.3-7.7) k/uL Lymphocytes # 0.8 L (1.0-4.8) k/uL Monocytes # 0.8 (0-1.0) k/uL Eosinophils # 0.2 (0-0.7) k/uL Basophils # 0.1 (0-0.2) k/uL PT 11.5 (9.0-12.0) sec INR 1.1 (<1.2) APTT 26.6 (22.0-30.0) sec Sodium 137 (137-145) mmol/L Potassium 3.7 (3.5-5.1) mmol/L Chloride 101 (98-107) mmol/L Carbon Dioxide 28 (22-30) mmol/L Anion Gap 8 mmol/L BUN 18 (9-20) mg/dL Creatinine 0.68 (0.66-1.25) mg/dL Est GFR (CKD-EPI)AfAm >90 (>60 ml/min/1.73 sqM) Est GFR (CKD-EPI)NonAf >90 (>60 ml/min/1.73 sqM) Glucose 98 (74-99) mg/dL Calcium 8.6 (8.4-10.2) mg/dL Total Bilirubin 0.7 (0.2-1.3) mg/dL AST 44 (17-59) U/L ALT 49 (21-72) U/L Alkaline Phosphatase 74 (38-126) U/L Total Protein 6.7 (6.3-8.2) g/dL Albumin 4.0 (3.5-5.0) g/dL Amylase <30 L (30-110) U/L Lipase 52 (23-300) U/L Urine Color Urine Appearance (Clear) Urine pH (5.0-8.0) Ur Specific Okay (1.001-1.035) Urine Protein (Negative) Urine Glucose (UA) (Negative) Urine Ketones (Negative) Urine Blood (Negative) Urine Nitrite (Negative) Urine Bilirubin (Negative) Urine Urobilinogen (<2.0) mg/dL Ur Leukocyte Esterase (Negative) Urine RBC (0-5) /hpf Urine WBC (0-5) /hpf Ur Squamous Epith Cells (0-4) /hpf Urine Mucus (None) /hpf 10/27/18 Range/Units 14:59 WBC (3.8-10.6) k/uL RBC (4.30-5.90) m/uL Hgb (13.0-17.5) gm/dL Hct (39.0-53.0) % MCV (80.0-100.0) fL MCH (25.0-35.0) pg MCHC (31.0-37.0) g/dL RDW (11.5-15.5) % Plt Count (150-450) k/uL Neutrophils % % Lymphocytes % % Monocytes % % Eosinophils % % Basophils % % Neutrophils # (1.3-7.7) k/uL Lymphocytes # (1.0-4.8) k/uL Monocytes # (0-1.0) k/uL Eosinophils # (0-0.7) k/uL Basophils # (0-0.2) k/uL PT (9.0-12.0) sec INR (<1.2) APTT (22.0-30.0) sec Sodium (137-145) mmol/L Potassium (3.5-5.1) mmol/L Chloride (98-107) mmol/L Carbon Dioxide (22-30) mmol/L Anion Gap mmol/L BUN (9-20) mg/dL Creatinine (0.66-1.25) mg/dL Est GFR (CKD-EPI)AfAm (>60 ml/min/1.73 sqM) Est GFR (CKD-EPI)NonAf (>60 ml/min/1.73 sqM) Glucose (74-99) mg/dL Calcium (8.4-10.2) mg/dL Total Bilirubin (0.2-1.3) mg/dL AST (17-59) U/L ALT (21-72) U/L Alkaline Phosphatase (38-126) U/L Total Protein (6.3-8.2) g/dL Albumin (3.5-5.0) g/dL Amylase (30-110) U/L Lipase (23-300) U/L Urine Color Yellow Urine Appearance Clear (Clear) Urine pH 6.5 (5.0-8.0) Ur Specific Okay 1.020 (1.001-1.035) Urine Protein Trace H (Negative) Urine Glucose (UA) Negative (Negative) Urine Ketones Negative (Negative) Urine Blood Small H (Negative) Urine Nitrite Negative (Negative) Urine Bilirubin Negative (Negative) Urine Urobilinogen <2.0 (<2.0) mg/dL Ur Leukocyte Esterase Large H (Negative) Urine RBC 2 (0-5) /hpf Urine WBC 63 H (0-5) /hpf Ur Squamous Epith Cells <1 (0-4) /hpf Urine Mucus Few H (None) /hpf - Radiology Data Radiology results: report reviewed KUB shows nonspecific abdomen with no diagnostic evidence of obstruction. Bilateral lobe infiltrate or small effusion noted. Disposition Clinical Impression: UTI (urinary tract infection), GERD (gastroesophageal reflux disease), Fractured rib Disposition: HOME SELF-CARE Condition: Good Instructions (If sedation given, give patient instructions): Urinary Tract Infection in Men (ED), Diet for Stomach Ulcers and Gastritis (ED) Additional Instructions: Patient has have close follow-up with primary care physician. Patient should follow-up with Dr. Sepulveda's well for GERD. Patient is a ureter changing your incontinence pad frequently. Return to the emergency department if any alarming signs or symptoms occur. Prescriptions: Levofloxacin [Levaquin] 750 mg PO DAILY #5 tab Omeprazole 40 mg PO DAILY #20 capsule. traMADol HCL [Ultram] 50 mg PO Q6HR PRN 3 Days #12 tab PRN Reason: Pain Is patient prescribed a controlled substance at d/c from ED?: No Referrals: Bogdan Cheung DO [Primary Care Provider] - 1-2 days Time of Disposition: 16:08
[2018-10-27 15:07] LABS: ALT 49 U/L (21-72); AST 44 U/L (17-59); Alkaline Phosphatase 74 U/L (38-126); Amylase <30 U/L (30-110); Anion Gap 8 mmol/L; Blood Urea Nitrogen 18 mg/dL (9-20); Calcium 8.6 mg/dL (8.4-10.2); Carbon Dioxide 28 mmol/L (22-30); Chloride 101 mmol/L (98-107); Glucose 98 mg/dL (74-99); Lipase 52 U/L (23-300); Potassium 3.7 mmol/L (3.5-5.1); Sodium 137 mmol/L (137-145); Total Bilirubin 0.7 mg/dL (0.2-1.3); Total Protein 6.7 g/dL (6.3-8.2)
[2018-10-27 15:15] LABS: INR 1.1 (<1.2); Partial Thromboplastin Time 26.6 sec (22.0-30.0); Prothrombin Time 11.5 sec (9.0-12.0)
[2018-10-27 15:17] LABS: Appearance,Urine Clear (Clear); Bilirubin,Urine Negative (Negative); Blood,Urine Small (Negative); Color,Urine Yellow; Glucose,Urine (UA) Negative (Negative); Ketones,Urine Negative (Negative); Leukocyte Esterase,Urine Large (Negative); Mucus,Urine Few /hpf; Nitrite,Urine Negative (Negative); PH, Urine 6.5 (5.0-8.0); Protein,Urine Trace (Negative); RBC,Urine 2 /hpf (0-5); Squamous Epithelial Cell,Urine <1 /hpf (0-4); Urobilinogen,Urine <2.0 mg/dL (<2.0); WBC,Urine 63 /hpf (0-5)
[2018-10-27] MEDS ORDERED: cefTRIAXone IN SWFI 1,000 MG/10 ML SYRINGE IVP STA (16:06)
[2018-10-27 16:30] VITALS: BP 151/79; PULSE 64
== END 2018-10-27 16:58 | disposition home or self-care (01) ==
LOC: EC 12:33
DX: K21.9 Gastro-esophageal reflux disease without esophagitis (principal); N39.0 Urinary tract infection, site not specified; S22.32XD Fracture of one rib, left side, subsequent encounter for fracture with routine healing; Z76.0 Encounter for issue of repeat prescription; R91.8 Other nonspecific abnormal finding of lung field; J91.8 Pleural effusion in other conditions classified elsewhere; I10 Essential (primary) hypertension; N40.1 Benign prostatic hyperplasia with lower urinary tract symptoms; N13.8 Other obstructive and reflux uropathy; G47.30 Sleep apnea, unspecified; Z79.899 Other long term (current) drug therapy; Z86.14 Personal history of Methicillin resistant Staphylococcus aureus infection; Z90.49 Acquired absence of other specified parts of digestive tract; Z98.84 Bariatric surgery status; Z99.89 Dependence on other enabling machines and devices; X58.XXXD Exposure to other specified factors, subsequent encounter
CPT/HCPCS: 36415; 80053; 82150; 83690; 85025; 85610; 85730; 81001; 87086; 74018; 99284; 96374; 96375 ×2; 96361 ×2; J2405; J0696; C9113

== ENCOUNTER → 2018-11-20 | Outpatient (CLI) | payer MEDICARE ==
[2018-11-20 10:15] LABS: HCT 45.7 % (39.0-53.0); HGB 15.2 gm/dL (13.0-17.5); MCH 27.6 pg (25.0-35.0); MCHC 33.2 g/dL (31.0-37.0); MCV 83.3 fL (80.0-100.0); Mean Platelet Volume 8.1; Platelet Count 230 k/uL (150-450); RBC 5.49 m/uL (4.30-5.90); RDW 15.7 % (11.5-15.5); WBC 5.6 k/uL (3.8-10.6)
[2018-11-20 10:31] LABS: ALT 51 U/L (21-72); AST 34 U/L (17-59); Albumin 4.4 g/dL (3.5-5.0); Alkaline Phosphatase 88 U/L (38-126); Anion Gap 8 mmol/L; Blood Urea Nitrogen 19 mg/dL (9-20); Calcium 9.1 mg/dL (8.4-10.2); Carbon Dioxide 29 mmol/L (22-30); Chloride 103 mmol/L (98-107); Cholesterol 146 mg/dL (<200); Glucose 97 mg/dL (74-99); HDL Cholesterol 28 mg/dL (40-60); LDL Cholesterol,Calculated 98 mg/dL (0-99); Magnesium 2.2 mg/dL (1.6-2.3); Phosphorus 3.7 mg/dL (2.5-4.5); Potassium 4.1 mmol/L (3.5-5.1); Sodium 140 mmol/L (137-145); Total Bilirubin 0.5 mg/dL (0.2-1.3); Total Protein 7.4 g/dL (6.3-8.2); Triglycerides 102 mg/dL (<150)
--- NOTE | 2018-11-20 13:19 | US ---
EXAMINATION TYPE: US gallbladder DATE OF EXAM: 11/20/2018 COMPARISON: CT 08/11/16 CLINICAL HISTORY: R10.11 ABD PAIN. severe acid reflux EXAM MEASUREMENTS: Liver Length: 17.8 cm Gallbladder Wall: 0.3 cm CBD: 0.5 cm Right Kidney: 15.1 x 7.3 x 7.3 cm Pancreas: Obscured by bowel gas Liver: Increased attenuation Gallbladder: No stones seen Evidence for sonographic To's sign: No CBD: wnl Right Kidney: wnl IMPRESSION: Correlate with exam is somewhat limited. Poor penetration of the ultrasound beam within t he liver could be due to underlying hepatic steatosis. Suspect hepatomegaly is present.
[2018-11-20 15:59] LABS: Iron Saturation 22.11 (15.00-50.00)
[2018-11-20 16:06] LABS: Vitamin D 25 Hydroxy 51.3 ng/mL (30.0-100.0)
[2018-11-20 17:04] LABS: Parathyroid Hormone Intact 66.7 pg/mL (14.0-72.0)
[2018-11-20 17:18] LABS: Hemoglobin A1C 5.8 % (4.0-6.0)
[2018-11-23 12:40] LABS: Vitamin A 44 ug/dL (38-106)
[2018-11-23 14:19] LABS: Zinc, Serum 84 ug/dL (60-130)
[2018-11-24 06:44] LABS: Vit B1(Thiamine) 51 ug/L (38-122)
== END | disposition home or self-care (01) ==
LOC: RADUSWWP 08:49
PROVIDERS: ATTEND Surgery Plastic and Reconstructive Surgery
DX: R10.11 Right upper quadrant pain (principal); E66.01 Morbid (severe) obesity due to excess calories; E21.1 Secondary hyperparathyroidism, not elsewhere classified; E89.1 Postprocedural hypoinsulinemia; D50.8 Other iron deficiency anemias; K90.89 Other intestinal malabsorption; E55.9 Vitamin D deficiency, unspecified; K76.9 Liver disease, unspecified; T56.894A Toxic effect of other metals, undetermined, initial encounter; K90.9 Intestinal malabsorption, unspecified
CPT/HCPCS: 76705; 80053; 80061; 82306; 82525; 82607; 82728; 82746; 83036; 83540; 83550; 83735; 83970; 84100; 84134; 84255; 84425; 84443; 84590; 84630; 85027; 85610; 85730

== ENCOUNTER → 2019-10-06 | Outpatient (CLI) | payer MEDICARE ==
--- NOTE | 2019-10-06 16:14 | P.PN ---
Subjective Progress Note Date: 10/06/19 DATE OF SERVICE: 10/06/2019 CHIEF COMPLAINT: Follow up gastric bypass. HISTORY OF PRESENT ILLNESS: Frederic Lane is a 68-year-old gentleman who is status post gastric bypass on 08/05/2016. He is over 3 years post op. He has been lost to bariatric follow up. He has moderate weight gain from his lowest weight 233 pounds. He has high carbohydrate intake. He has gained over 60 pounds in 3 years. He comes in with new complaints of umbilical hernia. He also comes in with new complaints of troubles urinating. At his height of 6-foot 1-inch frame, his ideal body weight is 188 pounds. His highest weight is 347 pounds. Today he comes in weighing 294 pounds from 266 pounds, 2 years ago. He has gained 28 pounds in 2 years. His lifetime weight loss is 53 pounds. Lifetime percent excess weight loss is 33%. Body mass index is reduced from 45.9 down to 38.9. He is 106 pounds overweight. PAST MEDICAL HISTORY: 1. Morbid obesity, initial 45.9 2. Hypertensive heart disease. 3. [id number] diabetes type 2, resolved. 4. Hypercholesterolemia. 5. Obstructive sleep apnea, resolved 6. Gastroesophageal reflux disease, resolved 7. Benign prostatic hyperplasia. 8. Vertigo. PAST SURGICAL HISTORY: 1. Upper endoscopy. 2. Appendectomy, open 3. Colonoscopy. 4. Alex-en-Y gastric bypass 08/05/2016. 5. Laparoscopic repair of incarcerated paraesophageal hiatal hernia. MEDICATIONS: 1. Norvasc. 2. Flomax 3. Proscar. 4. Multivitamin 5. Vitamin D ALLERGIES: Denies. SOCIAL HISTORY: No active tobacco use. He is . FAMILY HISTORY: Significant for moderate severe morbid obesity including his children. His daughter's body mass index is well over 70. REVIEW OF SYSTEMS: CONSTITUTIONAL: His highest weight for his 6-foot 1-inch frame is 347 pounds. His ideal body weight is 188 pounds. Lowest weight was 233 pounds. Body mass index is reduced from 45.9. HEENT: No troubles with hearing. Wears glasses. ENDOCRINE: History of diabetes type 2, resolved. No reports of thyroid disorder. CARDIOVASCULAR: History of hypertension, improved with decrease of blood pressur e medications. RESPIRATORY: Has moderate to severe obstructive sleep apnea, now resolved. GASTROINTESTINAL: Previous gastroesophageal reflux disease. No dumping syndrome. MUSCULOSKELETAL: History of osteoarthritis of the bilateral knees, improved. NEURO: No reports of stroke or seizure disorder. PSYCH: No reports of depression or suicidal ideation. HEMATOLOGIC: Denies any easy bruising or bleeding. GENITOURINARY: Has pre-existing obstructive uropathy. SKIN: No rash. No cancer. PHYSICAL EXAM: VITAL SIGNS: 6 feet 1 inch, 294 pounds, body mass index 38.9 Vital Signs Temp 98.4 F 10/06/19 17:09 Pulse 84 10/06/19 17:09 Resp BP 148/78 10/06/19 17:09 Pulse Ox GENERAL: Well-developed male in no acute distress. HEENT: No scleral icterus. Extraocular movements grossly intact. Moist buccal mucosa. NECK: Supple without lymphadenopathy. CHEST: Nonlabored respirations with equal bilateral excursions. CARDIOVASCULAR: Regular rate, regular rhythm. 2+ radial pulses. ABDOMEN: Protuberant, soft, nontender, nondistended. MUSCULOSKELETAL: No clubbing, cyanosis, or edema. NEURO: No focal or lateralizing signs. Cranial nerves II-12 grossly within nor mal limits. PSYCH: Appropriate affect. Alert and oriented to person, place, and time. SKIN: Well perfused. Good skin turgor. ASSESSMENT: 1. Status post Alex-en-Y gastric bypass. 2. Morbid obesity due to excess calories. 3. Body mass index reduced from 45.9 down to 38.9 4. History of hypertensive heart disease, improved 5. Obstructive sleep apnea, resolved. 6. Diabetes type 2, non insulin-dependent, resolved. 7. Iron-deficiency anemia. 8. Dyslipidemia 9. 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 Umbilical hernia 12. Dietary surveillance and counseling 13. Obstructive uropathy 14. Weight gain following bariatric procedure PLAN: 1. Recommend referral to urology for troubles with urination and bladder hypertrophy. 2. Recommend umbilical hernia repair with mesh 3. Recommend bariatric labs 4. Will need cardiac risk asessment. 5. He is elevated risk with his co-morbidities.
[2019-10-06 17:19] VITALS: BP 148/78; PULSE 84; TEMP 98.4; BMI 38.9
== END | disposition home or self-care (01) ==
LOC: BARWHC3 15:32
PROVIDERS: ATTEND Surgery Plastic and Reconstructive Surgery
DX: E66.01 Morbid (severe) obesity due to excess calories (principal); Z68.38 Body mass index [BMI] 38.0-38.9, adult; E11.9 Type 2 diabetes mellitus without complications; D50.9 Iron deficiency anemia, unspecified; E78.5 Hyperlipidemia, unspecified; R13.10 Dysphagia, unspecified; K91.89 Other postprocedural complications and disorders of digestive system; K42.9 Umbilical hernia without obstruction or gangrene; Z71.3 Dietary counseling and surveillance; N13.9 Obstructive and reflux uropathy, unspecified; Z98.84 Bariatric surgery status; Z79.899 Other long term (current) drug therapy; Z98.890 Other specified postprocedural states
CPT/HCPCS: 99211